=== PATIENT | male | born 1980 | race African-American/Black ===

== ENCOUNTER 2023-11-17 10:22 | Emergency (ER) | payer SELFPAY ==
[2023-11-17] MEDS ORDERED: Ketorolac Tromethamine 30 MG (1 mL) VIAL ONE (10:36)
== END 2023-11-17 10:45 | disposition home or self-care (01) ==
LOC: BURERS 10:22
DX: S33.5XXA Sprain of ligaments of lumbar spine, initial encounter (principal); F17.210 Nicotine dependence, cigarettes, uncomplicated; X50.0XXA Overexertion from strenuous movement or load, initial encounter
CPT/HCPCS: 96372; 99283; J1885